=== PATIENT | male | born 1980 | race Caucasian/White ===

== ENCOUNTER 2023-06-12 08:20 | Outpatient (CLI) | payer BC, SELFPAY | END 2023-06-12 08:21 | disposition home or self-care (01) | PROVIDERS: PCP Nurse Practitioner Family; Visit Provider Nurse Practitioner Family | DX: Z00.00 Encounter for general adult medical examination without abnormal findings (principal); R53.83 Other fatigue; M25.50 Pain in unspecified joint; Z13.6 Encounter for screening for cardiovascular disorders; Z13.1 Encounter for screening for diabetes mellitus | CPT/HCPCS: 80053; 80061; 82306; 84403; 84443; 85025; 85651; 86039; 86140; 86431 ==

== ENCOUNTER 2023-06-13 13:45 | Outpatient (RCR) | payer BC, SELFPAY | END 2023-10-11 23:59 | disposition home or self-care (01) | PROVIDERS: PCP Nurse Practitioner Family; Visit Provider Nurse Practitioner Family | DX: R29.898 Other symptoms and signs involving the musculoskeletal system (principal); M54.2 Cervicalgia; G89.29 Other chronic pain; R53.1 Weakness; R29.3 Abnormal posture; Z51.89 Encounter for other specified aftercare | CPT/HCPCS: 97110; 97140; 97162 ==

== ENCOUNTER 2023-06-23 13:07 | Outpatient (CLI) | payer BC, SELFPAY ==
--- NOTE | 2023-06-23 13:45 | CRLHL7_ITS ---
For Patients: As a result of the Century Cures Act, medical imaging exams and procedure reports are released immediately into your electronic medical record. You may view this report before your referring provider. If you have questions, please contact your health care provider. INDICATION: Neck pain. TECHNIQUE: Noncontrast sagittal T1, T2, STIR and axial GRE sequences are provided. No comparisons. FINDINGS: The overall stature, alignment and intrinsic marrow signal of the cervical spine is within normal limits. Cervical cord is normal. C6-7: Central canal is patent. Mild uncovertebral joint and facet arthropathy results in mild bilateral foraminal narrowing. Remainder of the cervical spine is unremarkable, specifically no evidence of suspicious central canal or foraminal narrowing. IMPRESSION: 1. Minor degenerative changes at C6-7 resulting in mild bilateral foraminal narrowing. 2. Otherwise, unremarkable MRI of the cervical spine. Dictated by Evans Merrill MD @ 06/23/2023 2:34:35 PM (Electronically Signed)
== END 2023-06-23 13:08 | disposition home or self-care (01) ==
LOC: MRI 13:08
PROVIDERS: PCP Nurse Practitioner Family; Visit Provider Nurse Practitioner Family
DX: M54.2 Cervicalgia (principal); M50.223 Other cervical disc displacement at C6-C7 level; R29.898 Other symptoms and signs involving the musculoskeletal system
CPT/HCPCS: 72141

== ENCOUNTER 2024-07-16 07:50 | Outpatient (CLI) | payer BC, SELFPAY | END 2024-07-16 07:51 | disposition home or self-care (01) | LOC: NFLDREF 07-20 13:23 | PROVIDERS: PCP Nurse Practitioner Family; Referring Provider Nurse Practitioner Family; Visit Provider Nurse Practitioner Family | DX: E78.5 Hyperlipidemia, unspecified (principal); R74.8 Abnormal levels of other serum enzymes | CPT/HCPCS: 80061; 80076 ==

== ENCOUNTER 2025-05-01 18:00 | Emergency (ER) | payer BC, SELFPAY ==
--- OUTSIDE RECORDS SUMMARY | 2025-05-01 18:01 | XMS_ITS | Clinical Summary ---
Author Organization [facility] Address [address] , [address] [place] [address] Phone Care Team Providers Care Cleaning Crew Member Name Role Phone Juan Diaz MD Conditions or Problems Problem Name Problem Code Onset Date Status Entry Date Provider Comment Standard Description Annotate Pain in right hand [id number] (SNOMED CT) Active Juan Diaz MD Hand pain Medications Medication Instructions Start Date Stop Date Generic Name NDC Provider Observed no known medication s at Medications Administered No information available. Allergies, Adverse Reactions, Alerts Observed no known allergies at Results Date Name Value Unit Range Flag Description Office Visit: Office Visit f ax [facility] T Documentation of current medications (procedure) Plan of Care Type Date Detail Pending order EMG right upper ext Procedures Code Procedure Name Date Entry Date ORDERS EMG right upper ext CPT-29788 Nerve Conduction 3-4 studies CPT-87052 EMG with NCS (5+ muscles) - 1 limb 12/23 Vital Signs No information available. Immunizations No information available. Advance Directives No information available.
[2025-05-01 18:02] VITALS: BP 141/92; PULSE 74; RESP 16; TEMP 36.6; O2SAT 97; BMI 25.1
--- OUTSIDE RECORDS SUMMARY | 2025-05-01 18:02 | XMS_ITS | Clinical Summary ---
Author Organization [facility] Address [address] [place] [id number] Care Team Providers Care Menagerie Superintendent Name Role Phone Josh James MD Primary Care Provider [phone] Allergies Active Allergy Reactions Criticality Noted Date Comments Sulfamethoxazole-Trimethop rim Hives 11/28/2017 had probable rash and prickly feeling in scalp and lips from Bactrim, no angioedema. Medications No known medications Active Problems Problem Noted Date Diagnosed Date Chronic left shoulder pain 12/08/2017 Overview (12/08/2017): Did physical therapy November 2017: Completely normal MR Arthrogram of the left Shoulder. Immunizations Immunization Administration Dates Next Due Influenza A (H1N1), Inactivated (Age >=3 Years) 09/26/2009 Tdap 03/01/2016 Family History Medical History Relation Name Comments Good Health Father Arthritis Maternal Grandfather Good Health Mother Cancer-colon Paternal Uncle Relation Name Status Comments Father Maternal Grandfather Mother Paternal Uncle Social History Tobacco Use Types Packs/Day Years Used Date Smoking Tobacco: Never Smokeless Tobacco: Never Tobacco Cessation:Counseling Given: Yes Alcohol Use Standard Drinks/Week Comments No 0 (1 standard drink = 0.6 oz pur e alcohol) Sex and Gender Information Value Date Recorded Sex Assigned at Not on file Legal Sex Male 7:38 AM LCSW Gender Identity Not on file Sexual Orientation Not on file Obstetrics History Last Filed Vital Signs Vital Sign Reading Time Taken Comments Blood Pressure 114/64 11/21/2017 1:13 PM LCSW Pulse 66 11/21/2017 1:13 PM LCSW Temperature 37.1 C (98.7 F) 10/08/2016 9:41 AM LCSW Respiratory Rate 18 03/18/2016 1:48 PM CDT Oxygen Saturation 97% 10/08/2016 9:41 AM LCSW Inhaled Oxygen Concentration - - Weight 78.2 kg (172 lb 8 oz) 11/21/2017 1:13 PM LCSW Height 172 cm (5' 7.72) 11/13/2017 2:09 PM LCSW Body Mass Index 26.45 11/13/2017 2:09 PM LCSW Plan of Treatment Health Maintenance Due Date Last Done Comments Depression screening for age 12+ 1993 HIV for age 15-65 1996 Hepatitis C screening for age 18-79 1999 Hepatitis B series for 19+ (1 of 3 - 19+ 3-dose series) 2000 Lipids for age 35-44 2016 BMI (ht and wt on same day) for age 18+ 11/13/2018 11/13/2017, 10/08/2016, 03/13/2016, Additional history exists COVID-19 vaccine series ( - 2023- season) 2024 Influenza Vaccine (#1) 2025 Tetanus booster 03/01/2026 03/01/2016 Pneumococcal series for age 6-49 Aged Out No longer eligible based on patient's age to complete this topic Insurance [facility] Care Teams Menagerie Superintendent Relationship Specialty Start Date End Date Josh James MD PCP - General Family Practice 05/08/12
--- NOTE | 2025-05-01 18:25 | ED_ITS ---
HPI - Eye Problem General Time Seen by Provider: 18:26 Date Seen: 05/01/25 Chief complaint: Eye Problems Stated complaint: Something Stuck in right eye Time Seen by Provider: 05/01/25 18:15 Source: patient and RN notes reviewed Mode of arrival: ambulatory Limitations: no limitations History of Present Illness HPI Narrative: This 44-year-old male is coming in with right eye irritation. He states it feels like something is stuck in his eye, possibly up under his eyelid, he feels like it moves around. He has tried irrigating, does have a home eye irrigation station. He does not have saline with it, was just have water and felt like it irritated his eye more. Closing his eye bothers him more. He thought this morning when he woke up he felt like there was an eyelash in his eye, he just really could not make the feeling something in his eye go away. He tried taking a shower, did not help. He has noted no visual changes, light is bothering his eye right now. He did work in a vehicle yesterday but were safety glasses, did not feel like he got anything in his eye than. He awoke with symptoms this morning. Tetanus within the last 10 years on 03/01/2016. Related Data Home Medications ?Medication ?Instructions ?Recorded ?Confirmed No Known Home Medications 06/09/23 0812/21 Allergies Allergy/AdvReac Type Severity Reaction Status Date / Time Sulfa (Sulfonamide Allergy Verified 07/13/24 08:28 Antibiotics) Review of Systems Narrative: As per HPI. PFSH PFS Surgical History History of tonsillectomy ?Z90.89 - Acquired absence of other organs (ICD-10) Family History Maternal Grandfather Diabetes Paternal Grandmother Cancer Celiac disease Uncle Cancer Social History What is your current living situation?: I presently have a place to live Smoking Status: Never smoker Exam Const: Vital Signs, click to edit/add: Vital Signs - 24 hr 05/01/25 18:02 Temperature 97.9 F Pulse Rate [Pulse Oximeter] 74 Respiratory Rate 16 Blood Pressure [Ri ght Upper Arm] 141/92 H Pulse Oximetry 97 Oxygen Delivery Me thod Room Air This 44-year-old male is sitting in dark room exam room to, does tolerate me turning on the light. There is no periorbital swelling or erythema on either side but his right eye is tearing. There is injection the right conjunctiva, pupils are equal round reactive, extraocular muscles intact. With magnification and with plain visualization I see no retained foreign body. Tetracaine drops were applied, he had good anesthesia and felt resolution of his symptoms. I was able to maria elena his upper eyelid, found a small punctate black speck of something that was removed with a Q-tip. Fluorescein was applied, I was visualized. He has a small corneal abrasion along the 12 o'clock position just along the edge of the iris. Documenting provider has reviewed patient's vital signs: yes Course Course ED Course: Patient is feeling better. We reviewed the hers a small foreign body which was removed, did not see any evidence of anything else. He has a small corneal abrasion. He is allergic to sulfa, both of the antibiotic drops have sulfa moiety is a. They do have lubricating eyedrops at home, will just have them use that and oral Tylenol and ibuprofen per bottle directions as needed. Vital Signs Vital signs: Initial Vital Signs Temperature 97.9 F 05/01/25 18:02 Temperature Source Temporal Artery Scan 05/01/25 18:02 Pulse Rate 74 05/01/25 18:02 Respiratory Rate 16 05/01/25 18:02 Blood Pressure 141/92 H 05/01/25 18:02 Blood Pressure Mean 108 H 05/01/25 18:02 Blood Pressure Position Sitting 05/01/25 18:02 Pulse Oximetry 97 05/01/25 18:02 Oxygen Delivery Method Room Air 05/01/25 18:02 Vital Signs Temperature 97.9 F 05/01/25 18:02 Pulse Rate 74 05/01/25 18:02 Respiratory Rate 16 05/01/25 18:02 Blood Pressure 141/92 H 05/01/25 18:02 Pulse Oximetry 97 05/01/25 18:02 Oxygen Delivery Method Room Air 05/01/25 18:02 Temperature 97.9 F 05/01/25 18:02 Pulse Rate 74 05/01/25 18:02 Respiratory Rate 16 05/01/25 18:02 Blood Pressure 141/92 H 05/01/25 18:02 Pulse Oximetry 97 05/01/25 18:02 Oxygen Delivery Method Room Air 05/01/25 18:02 Discharge Plan Discharge Clinical Impression: Foreign body of right external eye Qualifiers: Encounter type: initial encounter Qualified Code(s): T15.91XA - Foreign body on external eye, part unspecified, right eye, initial encounter Corneal abrasion, right Qualifiers: Encounter type: initial encounter Qualified Code(s): S05.01XA - Injury of conjunctiva and corneal abrasion without foreign body, right eye, initial encounter Patient Disposition: Home, Self-Care Condition: Stable Instructions: Corneal Abrasion (ED) Additional Instructions: Can use Tylenol and ibuprofen per bottle directions for any discomfort. Use lubricating eye drops like refresh as needed hourly for discomfort. With the removal of the small foreign body, hopefully will have vast improvement. The corneal abrasion usually is well on its way to healing within 24 hours. If by tomorrow you are not improving, or worsening at any point, would recommend follow-up with an eye doctor/liquefaction and regasification helper like [facility] or [facility]. Activity Level: No Restrictions Prescriptions: No Action No Known Home Medications Follow Up/Referrals: Marlyn Sun APRN, [employer]PECTOR [Primary Care Provider, Family Practice] Stand Alone Forms: MyHealth Info Instructions
--- OUTSIDE RECORDS SUMMARY | 2025-05-01 18:55 | XMS_ITS | Clinical Summary ---
Author Organization [facility] Address [address] [facility] , [address] [place] [address] Phone Care Team Providers Care Spacer Type Bar And Segment Name Role Phone Juan Diaz MD Conditions or Problems Problem Name Problem Code Onset Date Status Entry Date Provider Comment Standard Description Annotate Pain in right hand [id number] (SNOMED CT) Active Juan Diaz MD Hand [...] Entry Date ORDERS EMG right upper ext CPT-26556 Nerve Conduction 3-4 studies CPT-64133 EMG with NCS (5+ muscles) - 1 limb 12/23 Vital Signs No information available. Immunizations No information available. Advance Directives No information available.
== END 2025-05-01 18:59 | disposition home or self-care (01) ==
LOC: ED 18:53
PROVIDERS: Emergency Provider Family Medicine; PCP Nurse Practitioner Family
DX: T15.91XA Foreign body on external eye, part unspecified, right eye, initial encounter (principal); S05.01XA Injury of conjunctiva and corneal abrasion without foreign body, right eye, initial encounter
CPT/HCPCS: 99282; 99283; A9270